=== PATIENT | male | born 1980 | race Caucasian/White ===

== ENCOUNTER 2018-01-19 19:29 | Emergency (ER) | payer OTHER ==
[~2018-01-19] VITALS: Ht 180.3 cm; Wt 158.8 kg
[2018-01-19 19:36] VITALS: Ht 180.3 cm; Wt 158.8 kg
[2018-01-19 20:36] LABS: BASOPHIL % 0.7 % (0-2); PLATELET COUNT 249 x10^3mcL (130-400); RED CELL DISTRIBUTION WIDTH 13.3 % (11.5-14.5)
[2018-01-19 20:38] LABS: CALCIUM 9.1 mg/dL (8.5-10.1); CARBON DIOXIDE 31.9 mmol/L (21-32); CHLORIDE SERUM 102 mmol/L (98-107); GFR1 > 60 mL/min; GLUCOSE SERUM 97 mg/dL (74-106); POTASSIUM SERUM 4.2 mmol/L (3.5-5.1); SODIUM SERUM 141 mmol/L (136-145)
[2018-01-19 20:42] LABS: ALBUMIN 3.7 g/dL (3.4-5.0); ALKALINE PHOSPHATASE 106 U/L (46-116); ALT/SGPT 50 U/L (16-63); AST/SGOT 17 U/L (15-37); BILIRUBIN TOTAL 0.76 mg/dL (0.20-1.00); TOTAL PROTEIN, SERUM 7.3 g/dL (6.4-8.2)
[2018-01-19 21:44] VITALS: BP 172/90
== END 2018-01-19 21:44 | disposition home or self-care (01) ==
LOC: ED 19:29
PROVIDERS: Emergency Medicine
DX: R09.1 Pleurisy (principal); R07.1 Chest pain on breathing; F41.9 Anxiety disorder, unspecified; E05.90 Thyrotoxicosis, unspecified without thyrotoxic crisis or storm
CPT/HCPCS: 36415; 83880; 85378; 87804; J1885; Q0092